=== PATIENT | male | born 1975 | race African-American/Black ===

== ENCOUNTER 2017-01-27 21:44 | Emergency (ER) | payer OTHER ==
[~2017-01-27 21:44] MED LIST: predniSONE 20 MG TAB PO SCH
[2017-01-27] MEDS ORDERED: IPRATROPIUM/ALBUTEROL 3 ML DEYVIAL ONE (22:02)
[2017-01-27] MEDS ORDERED: IPRATROPIUM/ALBUTEROL 3 ML DEYVIAL IH ONE (22:04)
[2017-01-27] MEDS ORDERED: ALBUTEROL 3 ML DEYVIAL ONE (22:16)
[2017-01-27] MEDS ORDERED: predniSONE 20 MG TAB PO ONE (22:25)
[2017-01-27] MEDS ORDERED: ALBUTEROL INH PREPACK MDI TAKEHOME ONE (23:10)
--- NOTE | 2017-01-27 23:12 | EDPHY ---
H & P Stated Complaint: SOB, Hx asthma - Personal History Current Tetanus/Diphtheria Vaccine: Yes Current Tetanus Diphtheria and Acellular Pertussis (TDAP): Yes - Medical/Surgical History Hx Asthma: Yes Hx Chronic Respiratory Disease: No Hx Diabetes: No Hx Cardiac Disease: No Hx Renal Disease: No Hx Cirrhosis: No Hx Alcoholism: No Hx HIV/AIDS: No Hx Splenectomy or Spleen Trauma: No Other PMH: asthma - Social History Smoking Status: Current every day smoker Time Seen by Provider: 01/27/17 22:18 HPI/ROS: Chief complaint: Difficulty breathing, asthma exacerbation History of present illness: This is a 41-year-old male who presents to the emergency department for evaluation of difficulty breathing. He is concerned he is having an asthma exacerbation. He states symptoms began over the last few days. They have been progressively worsened. He believes his symptoms have been precipitated by the fact that he continues to smoke cigarettes with his asthma and that he arrived at altitude coming from [place] up to [place] over a few weeks ago. He denies other potential precipitating factors. He denies alleviating factors. He denies other associated signs or symptoms including no fevers, no cold symptoms, no cough or hemoptysis, no chest pain, no pain or swelling in the legs. Review of systems: A 10 point review of systems was obtained and other than described above was negative (Ad Carlton) - Physical Exam Exam: General Appearance: Alert, no distress. Eyes: Pupils equal and round no pallor or injection. ENT, Mouth: Mucous membranes moist. Respiratory: Patient is talking in full sentences. No use of accessary muscles. Diffuse inspiratory and expiratory wheezing. No rhonchi or rales. Cardiovascular: Regular rate and rhythm. Gastrointestinal: Abdomen is soft and nontender, no masses, bowel sounds normal. Neurological: Alert and oriented x4. Strength and sensation intact and symmetrical. Skin: Warm and dry, no rashes. Musculoskeletal: Neck is supple nontender. Extremities are symmetrical, full range of motion. No evidence of DVT on inspection. Psychiatric: Patient is oriented X 3, there is no agitation. (Ad Carlton) Constitutional: Initial Vital Signs Temperature (C) 36.7 C 01/27/17 22:00 Heart Rate 84 01/27/17 22:00 Respiratory Rate 18 01/27/17 22:00 Blood Pressure 128/72 H 01/27/17 22:00 O2 Sat (%) 91 L 01/27/17 22:00 O2 Delivery Mode Room Air Allergies/Adverse Reactions: grass pollen Allergy (Verified 01/27/17 22:00) Home Medications: Medication Instructions Recorded predniSONE 40 mg PO DAILY 4 Days 01/27/17 Medical Decision Making - Diagnostics Imaging: I viewed and interpreted images myself ED Course/Re-evaluation: Patient seen under the supervision of my secondary supervising physician Dr. Lisa Graf. Patient presents to the emergency depart with trouble breathing. He is concerned he is having an exacerbation of his asthma. Patient is currently a smoker and has recently arrived at altitude. Vital signs are stable. Physical exam does reveal diffuse wheezing. He is given a nebulizer and prednisone. On re-evaluation he is feeling much better and his lung sounds have improved. I do believe he is consistent with an asthma exacerbation. My suspicion for other pathology is low. He is given a new rescue inhaler with spacer and its use has been discussed. We have also provided him with a full course of prednisone. He is asked to follow up with a primary care doctor for recheck. Return precautions are given. Patient voiced understanding and agreement with plan. (Ad Carlton) Differential Diagnosis: Included but not limited to asthma exacerbation, status asthmaticus, infectious pathology such as bronchitis or pneumonia, unlikely PE (Ad Carlton) Other Provider: PHYSICIAN DOCUMENTATION: The patient was evaluated and managed by the Physician Lead Fire Protection Engineer. My co- signature indicates that I have reviewed this chart and I agree with the findings and plan of care as documented. I am the secondary supervising physician. (Lisa Graf) - Data Points Medications Given: Discontinued Medications Albuterol/Ipratropium (Duoneb) 3 ml IH EDNOW ONE Stop: 01/27/17 22:05 Last Admin: 01/27/17 22:20 Dose: 3 ml Prednisone (Prednisone) 60 mg PO EDNOW ONE Stop: 01/27/17 22:26 Last Admin: 01/27/17 22:59 Dose: 60 mg Departure - Departure Disposition: Home, Routine, Self-Care Clinical Impression: Exacerbation of asthma Condition: Good Instructions: Asthma (ED) Additional Instructions: Follow-up with a primary care doctor for recheck If symptoms worsen or new symptoms develop return to the emergency room for recheck Referrals: NONE *PRIMARY CARE P,. [Primary Care Provider] - As per Instructions [facility],. [Clinic] - As per Instructions Prescriptions: predniSONE 40 mg PO DAILY 4 Days
[2017-01-28 00:30] VITALS: BP 125/86; PULSE 78; RESP 20; TEMP 98.2; O2SAT 96
== END 2017-01-28 00:30 | disposition home or self-care (01) ==
DX: J45.901 Unspecified asthma with (acute) exacerbation (principal); F17.200 Nicotine dependence, unspecified, uncomplicated
CPT/HCPCS: J7512

== ENCOUNTER 2017-02-18 17:11 | Emergency (ER) | payer OTHER ==
[2017-02-18] MEDS ORDERED: IPRATROPIUM/ALBUTEROL 3 ML DEYVIAL ONE (17:24)
[2017-02-18] MEDS ORDERED: IPRATROPIUM/ALBUTEROL 3 ML DEYVIAL IH ONE (17:27)
--- NOTE | 2017-02-18 17:29 | EDPHY ---
H & P Stated Complaint: SOB. HX- asthma HPI/ROS: CHIEF COMPLAINT: Shortness of breath. HISTORY OF PRESENT ILLNESS: This patient is a 41 year old male with history of asthma complaining of shortness of breath onset yesterday. He moved here from [place] around six weeks ago, and was seen here about 3 weeks ago for an asthma exacerbation. He currently smokes about half a pack of cigarettes per day, and states that this combined with the altitude may be contributing to his increased symptoms. He generally uses an albuterol rescue inhaler for symptom relief, and used this rarely while in [place], every 3-4 months. Here, he uses it every 3 days or so. He recently lost his inhaler and was unable to use it for relief of his most recent asthma symptoms. He has not established care with a local physician yet. [facility] [place] He denies fever, cough, chest pain, other recent illness or associated symptoms. REVIEW OF SYSTEMS: A ten point review of systems was performed and is negative with the exception of the items mentioned in the HPI. - Personal History Current Tetanus/Diphtheria Vaccine: Yes Current Tetanus Diphtheria and Acellular Pertussis (TDAP): Yes - Medical/Surgical History PMH: 1. Asthma 2. Environmental allergies Hx Asthma: Yes Hx Chronic Respiratory Disease: No Hx Diabetes: No Hx Cardiac Disease: No Hx Renal Disease: No Hx Cirrhosis: No Hx Alcoholism: No Hx HIV/AIDS: No Hx Splenectomy or Spleen Trauma: No Other PMH: asthma - Social History Smoking Status: Current every day smoker Additional Social History: Recently moved from [place]. , [facility] [place]. Currently homeless, staying on the streets. Current tobacco use, one pack every 2-3 days. Social alcohol use. Polysubstance abuse-- methamphetamine, cocaine. - Physical Exam Exam: General Appearance: Alert. Vital signs reviewed. Respiratory rate 22, pulse ox 82% room air. Heart rate 110, blood pressure 125/90. Eyes: Pupils equal and round, no conjunctival injection, no discharge. Anicteric. ENT, Mouth: Mucous membranes are moist, no oropharyngeal erythema or edema. Neck: No lymphadenopathy, supple. Trachea midline. Respiratory: Diffuse wheezing. Speaking in full sentences. No retractions. Cardiovascular: Regular rate and rhythm; no murmur, rub, or gallop. Gastrointestinal: Abdomen is soft and nontender, no masses or organomegaly, bowel sounds normal. Skin: Warm and dry, no rashes on exposed skin, normal color. Back: Nontender to palpation over the thoracolumbar spine. No CVAT. Extremities: No lower extremity edema, no calf tenderness or swelling. Neurological: Alert and oriented. Moving all four extremities easily and equally. Psychiatric: Normal affect. Constitutional: Initial Vital Signs Heart Rate 110 H 02/18/17 17:17 Respiratory Rate 22 H 02/18/17 17:17 Blood Pressure 125/90 H 02/18/17 17:17 O2 Sat (%) 82 L 02/18/17 17:17 O2 Delivery Mode Room Air O2 (L/minute) 1.5 Allergies/Adverse Reactions: grass pollen Allergy (Verified 01/27/17 22:00) Home Medications: Medication Instructions Recorded Albuterol [Proventil Inhaler HFA 1 - 2 puffs IH Q4 #1 mdi 02/18/17 (*)] predniSONE 20 mg PO BID #8 tablet 02/18/17 Medical Decision Making ED Course/Re-evaluation: Administered DuoNeb. Administered 60mg PO Prednisone. Administered Albuterol nebulizer treatment. 19:16 Reassessed patient. Wheezes resolved. Plan to get another inhaler, spacer, prednisone course. Discussed patient's social situation. Patient is currently using methamphetamine and cocaine, but expresses interest in recovery. [facility]-- there would be a charge for him to go there this evening and he is not interested in that. We also discussed smoking cessation. He is given a referral for primary care. The discharge his pulse ox was 93% with a respiratory rate of 18 and heart rate of 88. He was speaking easily in full sentences. He felt markedly better. Differential Diagnosis: Shortness of breath including but not limited to pulmonary infectious process, COPD, asthma, pulmonary embolus and congestive heart failure. - Data Points Medications Given: Discontinued Medications Albuterol (Proventil Neb) 3 ml IH EDNOW ONE Stop: 02/18/17 17:52 Last Admin: 02/18/17 17:53 Dose: 3 ml Albuterol Sulfate (Proventil Inh Prepack) 1 mdi TAKEHOME EDNOW ONE Stop: 02/18/17 19:37 Last Admin: 02/18/17 20:33 Dose: 1 mdi Albuterol/Ipratropium (Duoneb) 3 ml IH EDNOW ONE Stop: 02/18/17 17:28 Last Admin: 02/18/17 17:28 Dose: 3 ml Prednisone (Prednisone) 60 mg PO EDNOW ONE Stop: 02/18/17 17:33 Last Admin: 02/18/17 17:41 Dose: 60 mg Departure - Departure Disposition: Home, Routine, Self-Care Clinical Impression: Exacerbation of asthma Condition: Good Instructions: Albuterol (By breathing), Asthma (ED), How to Stop Smoking (ED) Additional Instructions: 1. Take your prednisone as prescribed. 2. Use your inhaler as prescribed as needed. 3. Follow up with the [facility] for continued medication management. 4. Return to the Emergency Department for shortness of breath, cough, fever, or other worsening of condition. Referrals: [facility],. [Clinic] - As per Instructions [facility] [Outside] - As per Instructions Prescriptions: Albuterol [Proventil Inhaler HFA (*)] 1 - 2 puffs IH Q4 #1 mdi predniSONE 20 mg PO BID #8 tablet Report Scribed for: Rebecca Parmar Report Scribed by: Cheyanne Hodges Date of Report: 02/18/17 Time of Report: 17:30 Physician Review and Approval Statement: 02/18/17 17:28 Portions of this note were transcribed by the certified medical aide. I, Dr. Rebecca Parmar, personally performed the history, physical exam, and medical decision- making; and confirmed the accuracy of the information in the transcribed note.
[2017-02-18] MEDS ORDERED: predniSONE 20 MG TAB PO ONE (17:32)
[2017-02-18] MEDS ORDERED: ALBUTEROL 3 ML DEYVIAL IH ONE (17:51)
[2017-02-18] MEDS ORDERED: ALBUTEROL INH PREPACK MDI TAKEHOME ONE (19:36)
[2017-02-18 20:38] VITALS: BP 130/80; PULSE 88; RESP 18; TEMP 97.9; O2SAT 93
== END 2017-02-18 20:42 | disposition home or self-care (01) ==
DX: J45.901 Unspecified asthma with (acute) exacerbation (principal); F17.210 Nicotine dependence, cigarettes, uncomplicated
CPT/HCPCS: J7512

== ENCOUNTER 2017-05-08 19:10 | Emergency (ER) | payer OTHER ==
[2017-05-08] MEDS ORDERED: IPRATROPIUM/ALBUTEROL 3 ML DEYVIAL IH ONE (19:29)
[2017-05-08] MEDS ORDERED: ALBUTEROL INH PREPACK MDI TAKEHOME ONE (19:48)
--- NOTE | 2017-05-08 19:48 | EDPHY ---
H & P Time Seen by Provider: 05/08/17 19:26 HPI/ROS: CHIEF COMPLAINT: Asthma exacerbation HISTORY OF PRESENT ILLNESS: The patient is a 41-year-old male who presents emergency department with an asthma exacerbation. He states he has had asthma for a long time and he recently ran out of his inhaler of albuterol. The albuterol usually solved his shortness of breath. He developed shortness of breath this evening and came to the emergency department for treatment. He states this is typical of his asthma. He denies any recent fevers or chills. No change in sputum or cough. REVIEW OF SYSTEMS: My complete review of systems is negative except as mentioned in the HPI. Past Medical/Surgical History: Asthma Social history: Homeless Smoking Status: Current every day smoker Physical Exam: 36.4, 97/68, 109, 18, 95% on room air GENERAL: No acute distress, alert. HEENT: Eyes normal to inspection, normal pharynx, no signs of dehydration. NECK: No thyromegaly, no lymphadenopathy, supple. RESPIRATORY: Coarse breath sounds bilaterally. Diffuse air movement present. No significant wheezing or rales. (this exam occurred after receiving an albuterol nebulizer) CVS: Regular rate and rhythm, no rubs, murmurs, or gallops. ABDOMEN: Soft, nontender, nondistended, no organomegaly. BACK: Normal to inspection, no CVA tenderness. SKIN: Normal color, no rash, warm, dry. No pallor. EXTREMITIES: No pedal edema, no calf tenderness, no Homans sign or cords, no joint swelling. NEURO/PSYCH: Alert and oriented, normal mood and affect Constitutional: Initial Vital Signs Temperature (C) 36.4 C 05/08/17 19:21 Heart Rate 109 H 05/08/17 19:21 Respiratory Rate 18 05/08/17 19:21 Blood Pressure 97/68 L 05/08/17 19:21 O2 Sat (%) 95 05/08/17 19:21 O2 Delivery Mode Room Air Allergies/Adverse Reactions: grass pollen Allergy (Verified 01/27/17 22:00) cats Allergy (Uncoded 05/08/17 19:20) Home Medications: Medication Instructions Recorded NK [No Known Home Meds] 05/08/17 Medical Decision Making ED Course/Re-evaluation: In the emergency department I discussed etiologies with the patient. He states "this is 100% asthma." The patient requests an albuterol MDI. From triage she was given albuterol neb. He felt better after this treatment. He was given an albuterol inhaler from the emergency department. He is given follow-up with [facility]. Patient was given warnings prior to leaving. Differential Diagnosis: My differential includes but is not limited to asthma exacerbation, pneumonia, bronchitis, pulmonary embolus, CHF - Data Points Medications Given: Discontinued Medications Albuterol/Ipratropium (Duoneb) 3 ml EDNOW ONE Stop: 05/08/17 19:30 Last Admin: 05/08/17 19:31 Dose: 3 ml Departure - Departure Disposition: Home, Routine, Self-Care Clinical Impression: Exacerbation of asthma Qualifiers: Asthma severity: mild Asthma persistence: intermittent Qualified Code(s): J45.21 - Mild intermittent asthma with (acute) exacerbation Condition: Good Instructions: Asthma (ED) Additional Instructions: Use your inhaler as needed every 2 hours. Return to the emergency department with worsening shortness of breath. Referrals: [facility],. [Clinic] - 5-7 days, call for appt.
[2017-05-08 19:58] VITALS: BP 102/67; PULSE 87; RESP 16; TEMP 97.7; O2SAT 96
== END 2017-05-08 19:57 | disposition home or self-care (01) ==
DX: J45.21 Mild intermittent asthma with (acute) exacerbation (principal); F17.200 Nicotine dependence, unspecified, uncomplicated

== ENCOUNTER 2017-07-06 05:43 | Emergency (ER) | payer OTHER ==
[2017-07-06 05:49] VITALS: TEMP 98.2
[2017-07-06] MEDS ORDERED: IPRATROPIUM/ALBUTEROL 3 ML DEYVIAL IH ONE ×2 (05:55→06:37)
--- NOTE | 2017-07-06 05:55 | EDPHY ---
H & P Stated Complaint: asthma attack starting approx 3 hrs travel pta HPI/ROS: HPI CHIEF COMPLAINT: Shortness of breath, wheezing HISTORY OF PRESENT ILLNESS: This patient very pleasant 42-year-old male, significant past medical history of asthma, he states his asthma has been acting up over the past 6 months. He distally reports that he smokes daily tobacco and marijuana he has been told not to do this with his underlying asthma but continues to do so. He is out of his albuterol inhaler and presents emergency room with wheezing. He feels short of breath. He has never been intubated. He denies productive sputum cough. He denies chest pain. Main complaint shortness of breath with wheezing. Past Medical History: Asthma Past Surgical History: Denies surgical history Social History: Daily tobacco use, daily marijuana use, additionally reports IV drug use methamphetamine Family History: Noncontributory ROS REVIEW OF SYSTEMS: A comprehensive 10 point review of systems is otherwise negative aside from elements mentioned in the history of present illness. Exam Constitutional appears well nontoxic triage nursing summary reviewed, vital signs reviewed, awake/alert. Vital signs noted to be normal tracks 92% room air sat. Eyes normal conjunctivae and sclera, EOMI, PERRLA. HENT normal inspection, atraumatic, moist mucus membranes, no epistaxis, neck supple/ no meningismus, no raccoon eyes. Respiratory decreased breath sounds bilaterally with wheezing throughout all lung clancy, audible wheezing, no respiratory distress Cardiovascular rate normal, regular rhythm, no murmur, no edema, distal pulses normal. Gastrointestinal soft, non-tender, no rebound, no guarding, normal bowel sounds, no distension, no pulsatile mass. Genitourinary no CVA tenderness. Musculoskeletal no midline vertebral tenderness, full range of motion, no calf swelling, no tenderness of extremities, no meningismus, good pulses, neurovascularly intact. Skin pink, warm, & dry, no rash, skin atraumatic. Neurologic awake, alert and oriented x 3, AAOx3, moves all 4 extremities equally, motor intact, sensory intact, CN II-XII intact, normal cerebellar, normal vision, normal speech. Psychiatric normal mood/affect. Heme/Lymph/Immune no lymphadenopathy. Differential Diagnosis: Includes but is not limited to in a particular order reactive airway disease, acute asthma, bronchitis, pneumonia, tobacco abuse, marijuana abuse Medical Decision Making: Plan for this patient DuoNeb breathing treatment, IV establishment with blood draw, IV Solu-Medrol, chest x-ray, and re-evaluation after breathing treatment. Re-evaluation: 0652: Chest x-ray one view reviewed by myself. No acute cardiopulmonary disease. Patient received 2 DuoNeb breathing treatments here. IV fluid bolus and IV Solu -Medrol and is feeling much better. He is requesting discharge. Re-examination of his lungs are clear. Very faint wheezing good air movement. No hypoxia. I will prescribe an albuterol inhaler, additionally prednisone for 5 days. He understands return precautions understands to return emergency room if develops worsening shortness of breath worsening wheezing trouble breathing fever vomiting or pain. Source: Patient - Medical/Surgical History Hx Asthma: Yes Hx Chronic Respiratory Disease: No Hx Diabetes: No Hx Cardiac Disease: No Hx Renal Disease: No Hx Cirrhosis: No Hx Alcoholism: No Hx HIV/AIDS: No Hx Splenectomy or Spleen Trauma: No Other PMH: asthma, ptsd, dep/anxiety. iv drug use - Social History Smoking Status: Current every day smoker Constitutional: Initial Vital Signs Temperature (C) 36.8 C 07/06/17 05:46 Heart Rate 108 H 07/06/17 05:46 Respiratory Rate 18 07/06/17 05:46 Blood Pressure 122/89 H 07/06/17 05:46 O2 Sat (%) 92 07/06/17 05:46 O2 Delivery Mode Room Air Allergies/Adverse Reactions: grass pollen Allergy (Verified 07/06/17 05:49) cats Allergy (Uncoded 05/08/17 19:20) Home Medications: Medication Instructions Recorded Albuterol [Proventil Inhaler HFA 1 - 2 puffs IH Q4H #1 mdi 07/06/17 (*)] predniSONE 60 mg PO DAILY #15 tab 07/06/17 Medical Decision Making - Data Points Laboratory Results: Laboratory Results 07/06/17 06:16 07/06/17 07/06/17 06:16 06:16 WBC 5.79 10^3/uL 10^3/uL (3.80-9.50) RBC 5.23 10^6/uL 10^6/uL (4.40-6.38) Hgb 16.1 g/dL g/dL (13.7-17.5) Hct 46.2 % % (40.0-51.0) MCV 88.3 fL fL (81.5-99.8) MCH 30.8 pg pg (27.9-34.1) MCHC 34.8 g/dL g/dL (32.4-36.7) RDW 12.9 % % (11.5-15.2) Plt Count 188 10^3/uL 10^3/uL (150-400) MPV 10.0 fL fL (8.7-11.7) Neut % (Auto) 39.9 % % (39.3-74.2) Lymph % (Auto) 46.1 % H % (15.0-45.0) [place] % (Auto) 6.2 % % (4.5-13.0) Eos % (Auto) 7.1 % % (0.6-7.6) Baso % (Auto) 0.5 % % (0.3-1.7) Nucleat RBC Rel Count 0.0 % % (0.0-0.2) Absolute Neuts (auto) 2.31 10^3/uL 10^3/uL (1.70-6.50) Absolute Lymphs (auto) 2.67 10^3/uL 10^3/uL (1.00-3.00) Absolute Monos (auto) 0.36 10^3/uL 10^3/uL (0.30-0.80) Absolute Eos (auto) 0.41 10^3/uL H 10^3/uL (0.03-0.40) Absolute Basos (auto) 0.03 10^3/uL 10^3/uL (0.02-0.10) Absolute Nucleated RBC 0.00 10^3/uL 10^3/uL (0-0.01) Immature Gran % 0.2 % % (0.0-1.1) Immature Gran # 0.01 10^3/uL 10^3/uL (0.00-0.10) Sodium Pending Potassium Pending Chloride Pending Carbon Dioxide Pending Anion Gap Pending BUN Pending Creatinine Pending Estimated GFR Pending Glucose Pending Calcium Pending Medications Given: Discontinued Medications Albuterol Sulfate (Proventil Inh Prepack) 1 sage CARBALLO ONE Stop: 07/06/17 06:05 Last Admin: 07/06/17 06:36 Dose: 1 mdi Albuterol/Ipratropium (Duoneb) 3 ml IH EDNOW ONE Stop: 07/06/17 05:56 Last Admin: 07/06/17 05:59 Dose: 3 ml Albuterol/Ipratropium (Duoneb) 3 ml IH EDNOW ONE Stop: 07/06/17 06:38 Last Admin: 07/06/17 06:38 Dose: 3 ml Sodium Chloride (Ns) 1,000 mls @ 0 mls/hr IV ONCE ONE; Wide Open PRN Reason: Protocol Stop: 07/06/17 06:01 Last Admin: 07/06/17 06:15 Dose: 1,000 mls Methylprednisolone Sodium Succinate (Solu-Medrol) 125 mg IVP EDNOW ONE Stop: 07/06/17 06:01 Last Admin: 07/06/17 06:14 Dose: 125 mg Departure - Departure Disposition: Home, Routine, Self-Care Clinical Impression: Asthma Qualifiers: Asthma severity: mild Asthma persistence: intermittent Asthma complication type : with acute exacerbation Qualified Code(s): J45.21 - Mild intermittent asthma with (acute) exacerbation Condition: Good Instructions: Albuterol (By breathing), Prednisone (By mouth), Asthma (ED) Additional Instructions: 1. Please stop smoking. 2. Steroids for 5 days. 3. Return to the ER if there is worsening symptoms questions or concerns 4. Stay well-hydrated. 6. Inhaler 2 puffs every 4 hr as needed for wheezing. Referrals: NONE *PRIMARY CARE P,. [Primary Care Provider] - As per Instructions Prescriptions: Albuterol [Proventil Inhaler HFA (*)] 1 - 2 puffs IH Q4H #1 mdi predniSONE 60 mg PO DAILY #15 tab
[2017-07-06] MEDS ORDERED: methylPREDNISolone SOD SUCC 125 MG/2 ML VIAL IVP ONE (06:00)
[2017-07-06] MEDS ORDERED: NS 1,000 ML IV ONE (06:00)
[2017-07-06] MEDS ORDERED: ALBUTEROL INH PREPACK MDI TAKEHOME ONE (06:04)
[2017-07-06 06:23] LABS: % IMMATURE GRANULYOCYTES 0.2 % (0.0-1.1); ABSOLUTE IMMATURE GRANULOCYTES 0.01 10^3/uL (0.00-0.10); ADD DIFF? NO; ADD MORPH? NO; ADD SCAN? NO; ATYPICAL LYMPHOCYTE FLAG 10 (0-99); FRAGMENT RBC FLAG 0 (0-99); HEMATOCRIT 46.2 % (40.0-51.0); HEMOGLOBIN 16.1 g/dL (13.7-17.5); LEFT SHIFT FLG 0 (0-99); LIPEMIA HEMOLYSIS FLAG 90 (0-99); MEAN CELL HEMOGLOBIN 30.8 pg (27.9-34.1); MEAN CELL HEMOGLOBIN CONCENTR. 34.8 g/dL (32.4-36.7); MEAN CELL VOLUME 88.3 fL (81.5-99.8); PLATELET CLUMPS FLAG 0 (0-99); PLATELET COUNT 188 10^3/uL (150-400); RED BLOOD CELL COUNT 5.23 10^6/uL (4.40-6.38); RED CELL DISTRIBUTION WIDTH 12.9 % (11.5-15.2)
[2017-07-06] MEDS ORDERED: IPRATROPIUM/ALBUTEROL 3 ML DEYVIAL ONE (06:38)
[2017-07-06 06:54] LABS: ANION GAP 14 mEq/L (8-16); CALCIUM 9.6 mg/dL (8.5-10.4); CARBON DIOXIDE 26 mEq/l (22-31); CHLORIDE 103 mEq/L (97-110); GLOMERULAR FILTRATION RATE > 60; GLUCOSE 123 mg/dL (70-100); POTASSIUM 4.2 mEq/L (3.5-5.2); SODIUM 143 mEq/L (134-144)
[2017-07-06 07:06] VITALS: BP 145/93; PULSE 93; RESP 18; O2SAT 100
== END 2017-07-06 07:17 | disposition home or self-care (01) ==
DX: J45.21 Mild intermittent asthma with (acute) exacerbation (principal); F17.200 Nicotine dependence, unspecified, uncomplicated; E86.9 Volume depletion, unspecified
CPT/HCPCS: 71010; 96361; 96374; 99284; J2930

== ENCOUNTER 2017-12-25 19:45 | Emergency (ER) | payer OTHER ==
--- NOTE | 2017-12-25 20:15 | CPEKG ---
Heart Rate: 86 RR Interval: 698 P-R Interval: 160 QRSD Interval: 84 QT Interval: 380 QTC Interval: 455 P [place]: 82 QRS [place]: 85 T Wave [place]: 69 EKG Severity - NORMAL ECG - EKG Impression: SINUS RHYTHM Electronically Signed By: Walter Puente 28-Dec-2017 11:40:41
[2017-12-25] MEDS ORDERED: predniSONE 20 MG TAB PO ONE (20:19)
--- NOTE | 2017-12-25 21:13 | EDPHY ---
H & P Stated Complaint: Asthma Time Seen by Provider: 12/25/17 20:00 HPI/ROS: Chief complaint: Asthma exacerbation History of present illness: This is a 42-year-old male with a history of asthma , who denies a history need for advanced airway management, who presents for evaluation and treatment of what he believes is an exacerbation. He states he has run out of his inhaler recently. He has had increasing shortness of breath , he believes it is due to pollen. He denies other associated signs or symptoms : No fevers, no cold symptoms, no pain or swelling in the legs. Review of systems: A 10 point review of systems was obtained and other than described above was negative - Personal History Current Tetanus/Diphtheria Vaccine: Yes Current Tetanus Diphtheria and Acellular Pertussis (TDAP): Yes - Medical/Surgical History Hx Asthma: Yes Hx Chronic Respiratory Disease: No Hx Diabetes: No Hx Cardiac Disease: No Hx Renal Disease: No Hx Cirrhosis: No Hx Alcoholism: No Hx HIV/AIDS: No Hx Splenectomy or Spleen Trauma: No Other PMH: asthma, ptsd, dep/anxiety. iv drug use - Social History Smoking Status: Current every day smoker - Physical Exam Exam: General Appearance: Alert, nontoxic. Eyes: Pupils equal and round no pallor or injection. ENT, Mouth: Mucous membranes moist. Respiratory: Patient is talking in full sentences. There is diffuse inspiratory and expiratory wheezing. Cardiovascular: Regular rate and rhythm. Neurological: Alert and oriented x4. Strength and sensation intact and symmetrical. Skin: Warm and dry, no rashes. Musculoskeletal: Neck is supple non tender. Extremities are symmetrical, full range of motion. Psychiatric: Patient is oriented X 3, there is no agitation. Constitutional: Initial Vital Signs Temperature (C) 36.7 C 12/25/17 19:45 Heart Rate 104 H 12/25/17 19:45 Respiratory Rate 16 12/25/17 19:45 Blood Pressure 134/67 H 12/25/17 19:45 O2 Sat (%) 97 12/25/17 19:45 O2 Delivery Mode Room Air Allergies/Adverse Reactions: grass pollen Allergy (Verified 07/06/17 05:49) cats Allergy (Uncoded 05/08/17 19:20) Home Medications: Medication Instructions Recorded Albuterol [Proventil Inhaler HFA 1 - 2 puffs IH Q4H #1 mdi 07/06/17 (*)] predniSONE 60 mg PO DAILY #15 tab 07/06/17 Albuterol [Ventolin Hfa Inhaler] 1 - 2 puffs IH Q4 #1 mdi 12/25/17 predniSONE 40 mg PO DAILY 3 Days tab 12/25/17 Medical Decision Making - Diagnostics Imaging Results: Imaging Impressions Chest X-Ray 12/25/17 20:09 Impression: Mild peribronchial thickening suggesting airways disease/bronchitis. Imaging: I viewed and interpreted images myself ED Course/Re-evaluation: Patient is seen under the supervision of my secondary supervising physician Dr. Darrel Carr. Patient presents to the emergency department for evaluation of an asthma exacerbation. He is nontoxic. Physical exam does reveal diffuse wheezing. The workup unremarkable. He is given a DuoNeb and 60 mg of prednisone orally. He states he is feeling much better. Lung sounds have improved. He is discharged home with an inhaler and spacer. He is given a prescriptions for a burst of steroids as it has been greater than 3 months since his last use of steroids. He is also given a prescription for inhalers with refills. Home care is discussed. He is to follow up with primary care doctor for recheck. Return precautions are given. Differential Diagnosis: Included but not limited to asthma exacerbation, status asthmaticus, pulmonary infections - Data Points Medications Given: Discontinued Medications Albuterol Sulfate (Proventil Inh Prepack) 1 mdi TAKEHOME EDNOW ONE Stop: 12/25/17 21:15 Last Admin: 12/25/17 22:04 Dose: 1 mdi Prednisone (Prednisone) 60 mg PO EDNOW ONE Stop: 12/25/17 20:20 Last Admin: 12/25/17 20:26 Dose: 60 mg Departure - Departure Disposition: Home, Routine, Self-Care Clinical Impression: Exacerbation of asthma Qualifiers: Asthma severity: unspecified severity Asthma persistence: unspecified Qualified Code(s): J45.901 - Unspecified asthma with (acute) exacerbation Condition: Good Instructions: Albuterol (By breathing), Asthma (ED) Additional Instructions: Follow-up with the primary care doctor this week for recheck If symptoms worsen or new symptoms develop return to the emergency room for recheck Referrals: NONE *PRIMARY CARE P,. [Primary Care Provider] - As per Instructions [facility],. [Clinic] - As per Instructions Prescriptions: Albuterol [Ventolin Hfa Inhaler] 1 - 2 puffs IH Q4 #1 mdi predniSONE 40 mg PO DAILY 3 Days tab
[2017-12-25] MEDS ORDERED: ALBUTEROL INH PREPACK MDI TAKEHOME ONE (21:14)
[2017-12-26 06:30] VITALS: BP 118/76
== END 2017-12-25 22:11 | disposition home or self-care (01) ==
LOC: EDUNIT#
DX: J45.901 Unspecified asthma with (acute) exacerbation (principal); F17.200 Nicotine dependence, unspecified, uncomplicated
CPT/HCPCS: 71046; 93005; 99284; J7512

== ENCOUNTER 2018-11-17 06:14 | Emergency (ER) | payer OTHER ==
[2018-11-17] MEDS ORDERED: IPRATROPIUM/ALBUTEROL 3 ML DEYVIAL ONE (06:40)
--- NOTE | 2018-11-17 06:40 | EDPHY ---
H & P Stated Complaint: asthma attack x2 hours, out if inhaler Source: Patient - Personal History Current Tetanus/Diphtheria Vaccine: No - Medical/Surgical History Hx Asthma: Yes Hx Chronic Respiratory Disease: No Hx Diabetes: No Hx Cardiac Disease: No Hx Renal Disease: No Hx Cirrhosis: No Hx Alcoholism: No Hx HIV/AIDS: No Hx Splenectomy or Spleen Trauma: No Other PMH: asthma, ptsd, dep/anxiety. iv drug use - Social History Smoking Status: Current every day smoker Time Seen by Provider: 11/17/18 06:40 HPI/ROS: HPI CHIEF COMPLAINT: Asthma HISTORY OF PRESENT ILLNESS: This patient is a 43-year-old male, presents to the emergency room shortness of breath, wheezing, coughing nonproductive. Patient states he smokes tobacco, additionally marijuana and smoked methamphetamine tonight. He states shortly after smoking methamphetamine he began wheezing and coughing. He believes his asthma is acting up. Watkins short of breath. Denies any chest pain. No history of intubation. Past Medical History: Asthma Past Surgical History: No surgical history Social History: Denies alcohol. Does smoke tobacco, marijuana, methamphetamine. Family History: Noncontributory ROS REVIEW OF SYSTEMS: 10 Systems were reviewed and negative with the exception of the elements mentioned in the history of present illness. Exam Constitutional triage nursing summary reviewed, vital signs reviewed, awake/ alert. No distress. No hypoxia Eyes normal conjunctivae and sclera, EOMI, PERRLA. HENT normal inspection, atraumatic, moist mucus membranes, no epistaxis, neck supple/ no meningismus, no raccoon eyes. Respiratory faint wheezing bilaterally, however good air movement Cardiovascular rate normal, regular rhythm, no murmur, no edema, distal pulses normal. Gastrointestinal soft, non-tender, no rebound, no guarding, normal bowel sounds, no distension, no pulsatile mass. Genitourinary no CVA tenderness. Musculoskeletal no midline vertebral tenderness, full range of motion, no calf swelling, no tenderness of extremities, no meningismus, good pulses, neurovascularly intact. Skin pink, warm, & dry, no rash, skin atraumatic. Neurologic awake, alert and oriented x 3, AAOx3, moves all 4 extremities equally, motor intact, sensory intact, CN II-XII intact, normal cerebellar, normal vision, normal speech. Psychiatric normal mood/affect. Heme/Lymph/Immune no lymphadenopathy. Differential Diagnosis: Includes but is not limited to in a particular order acute asthma attack, reactive airway disease, bronchitis, pneumothorax, pneumonia. Medical Decision Making: Plan for this patient DuoNeb breathing treatment, chest x-ray, IV establishment with blood draw, IV Solu-Medrol. Re-evaluate Re-evaluation: 0745: Patient re-evaluated this time he is still wheezing. However does have good air movement, pulse ox 93% on room air. Heart rate 77. Plan for 2nd DuoNeb breathing treatment Patient received 60 mg prednisone orally he declined IV establishment. Declined IV blood draw or IV Solu-Medrol. ED x-ray chest one view; negative for acute cardiopulmonary disease. Image interpreted by myself. Plan for this patient at this time 2nd DuoNeb breathing treatment and re- evaluation. Signed over to Dr. Gates 7:50 a.m.. For re-evaluation. Prescription albuterol prednisone will be provided. I did weight loss counselor the patient not smoking methamphetamine, tobacco, marijuana. (Rickey Good) Constitutional: Initial Vital Signs Temperature (C) 36.6 C 11/17/18 06:16 Heart Rate 95 11/17/18 06:16 Respiratory Rate 18 11/17/18 06:16 Blood Pressure 114/69 11/17/18 06:16 O2 Sat (%) 90 L 11/17/18 06:16 O2 Delivery Mode Room Air Allergies/Adverse Reactions: grass pollen Allergy (Verified 07/06/17 05:49) cats Allergy (Uncoded 05/08/17 19:20) Home Medications: Medication Instructions Recorded Albuterol [Ventolin Hfa Inhaler] 1 - 2 puffs IH Q4 #1 mdi 12/25/17 Albuterol [Proventil Inhaler HFA 1 - 2 puffs IH Q4H #1 mdi 11/17/18 (*)] predniSONE 50 mg PO DAILY #5 tablet 11/17/18 Medical Decision Making ED Course/Re-evaluation: 0745: I assumed care of this pt at shift change. He presents with an asthma exacerbation after running out of his inhaler. No recent illness or fever. Lungs are clear to auscultation on my exam. Oxygen saturation 93% on room air. CXR reviewed by me: no infiltrate. Will d/c home after neb. (Sammi Gates) - Data Points Medications Given: Discontinued Medications Albuterol/Ipratropium (Duoneb) 3 ml IH EDNOW ONE Stop: 11/17/18 06:48 Last Admin: 11/17/18 06:47 Dose: 3 ml Sodium Chloride (Ns) 1,000 mls @ 0 mls/hr IV EDNOW ONE; Wide Open PRN Reason: Protocol Stop: 11/17/18 06:47 Last Admin: 11/17/18 07:14 Dose: Not Given Methylprednisolone Sodium Succinate (Solu-Medrol) 125 mg IVP EDNOW ONE Stop: 11/17/18 06:48 Last Admin: 11/17/18 07:14 Dose: Not Given Prednisone (Prednisone) 60 mg PO EDNOW ONE Stop: 11/17/18 06:50 Last Admin: 11/17/18 07:14 Dose: 60 mg Departure - Departure Disposition: Home, Routine, Self-Care Clinical Impression: Asthma attack Condition: Good Instructions: Asthma (ED) Additional Instructions: 1. STAY WELL-HYDRATED DRINK LOTS OF FLUIDS. 2. PLEASE RETURN TO THE EMERGENCY ROOM IF DEVELOPS WORSENING SHORTNESS OF BREATH , FEVER, VOMITING, COUGH 3. ALBUTEROL INHALER 2 PUFFS NEEDED EVERY 4 HR. 4. DO NOT SMOKE TOBACCO MARIJUANA OR METHAMPHETAMINE. Referrals: [facility],. [Clinic] - 1 day, if not improved Prescriptions: Albuterol [Proventil Inhaler HFA (*)] 1 - 2 puffs IH Q4H #1 mdi predniSONE 50 mg PO DAILY #5 tablet
[2018-11-17] MEDS ORDERED: NS 1,000 ML IV ONE (06:46)
[2018-11-17] MEDS ORDERED: methylPREDNISolone SOD SUCC 125 MG/2 ML VIAL IVP ONE (06:47)
[2018-11-17] MEDS ORDERED: IPRATROPIUM/ALBUTEROL 3 ML DEYVIAL IH ONE ×2 (06:47→07:50)
[2018-11-17] MEDS ORDERED: predniSONE 20 MG TAB PO ONE (06:49)
[2018-11-17 08:14] VITALS: BP 119/75
== END 2018-11-17 08:17 | disposition home or self-care (01) ==
DX: J45.901 Unspecified asthma with (acute) exacerbation (principal); E86.9 Volume depletion, unspecified
CPT/HCPCS: 71045; 99284; J7512; J2930

== ENCOUNTER 2018-11-21 00:07 | Emergency (ER) | payer OTHER ==
[2018-11-21] MEDS ORDERED: IPRATROPIUM/ALBUTEROL 3 ML DEYVIAL ONE (00:13)
[2018-11-21] MEDS ORDERED: IPRATROPIUM/ALBUTEROL 3 ML DEYVIAL IH ONE (00:17)
[2018-11-21] MEDS ORDERED: ALBUTEROL INH PREPACK MDI TAKEHOME ONE (00:33)
--- NOTE | 2018-11-21 00:46 | EDPHY ---
H & P Stated Complaint: asthma Time Seen by Provider: 11/21/18 00:30 HPI/ROS: Chief Complaint: Asthma exacerbation HPI: 43-year-old male with a history of asthma is presenting with a worsening exacerbation. Patient lost his albuterol inhaler. He was here 3 days ago and received a new inhaler at that time. He has had increasing cough and wheeze. No fevers or chills. No chest pain. Some moderate shortness of breath. No fainting. Patient states that he only uses albuterol for his asthma. He is not on a control inhaler. He has had steroids occasionally in the past, none recently. No recent URI symptoms. Has had multiple hospitalizations with visits to the ED. No intubations in the past. Per nursing staff patient had diffuse expiratory wheezing on exam. They initiated DuoNeb prior to my evaluation. ROS: 10 systems were reviewed and were negative except those elements noted in the HPI. PMH: Asthma Social History: No smoking, no alcohol, currently homeless Family History: non-contributory Physical Exam: Gen: Awake, Alert, No Distress HEENT: Nose: no rhinorrhea Eyes: PERRLA, EOMI Mouth: Moist mucosa Neck: Supple, no JVD Chest: nontender, lungs clear to auscultation, no wheeze, mildly prolonged expiratory phase with forced expiration. Heart: S1, S2 normal, no murmur Abd: Soft, non-tender, no guarding Back: no CVA tenderness, no midline tenderness Ext: no edema, non-tender Skin: no rash Neuro: CN II-XII intact, Sensation grossly intact, Strength 5/5 in bilateral upper and lower extremities - Personal History Current Tetanus/Diphtheria Vaccine: No Current Tetanus Diphtheria and Acellular Pertussis (TDAP): No - Medical/Surgical History Hx Asthma: Yes Hx Chronic Respiratory Disease: No Hx Diabetes: No Hx Cardiac Disease: No Hx Renal Disease: No Hx Cirrhosis: No Hx Alcoholism: No Hx HIV/AIDS: No Hx Splenectomy or Spleen Trauma: No Other PMH: asthma, ptsd, dep/anxiety. iv drug use - Social History Smoking Status: Current every day smoker Constitutional: Initial Vital Signs Heart Rate 95 11/21/18 00:13 Respiratory Rate 16 11/21/18 00:13 Blood Pressure 125/85 H 11/21/18 00:13 O2 Sat (%) 96 11/21/18 00:13 O2 Delivery Mode Room Air Allergies/Adverse Reactions: grass pollen Allergy (Verified 07/06/17 05:49) cats Allergy (Uncoded 05/08/17 19:20) Home Medications: Medication Instructions Recorded Albuterol [Ventolin Hfa Inhaler] 1 - 2 puffs IH Q4 #1 mdi 12/25/17 Albuterol [Proventil Inhaler HFA 1 - 2 puffs IH Q4H #1 mdi 11/17/18 (*)] predniSONE 50 mg PO DAILY #5 tablet 11/17/18 Medical Decision Making ED Course/Re-evaluation: 43-year-old asthmatic male presenting with asthma exacerbation. Patient is improved after a single neb treatment here. He states he feels back to his baseline. I have given him an albuterol inhaler and a spacer. Will - Data Points Medications Given: Discontinued Medications Albuterol/Ipratropium (Duoneb) 3 ml IH EDNOW ONE Stop: 11/21/18 00:18 Last Admin: 11/21/18 00:18 Dose: 3 ml Departure - Departure Disposition: Home, Routine, Self-Care Clinical Impression: Exacerbation of asthma Condition: Good Instructions: Albuterol (By breathing), Asthma (ED) Additional Instructions: [facility] in 2-3 days for re-evaluation. Return to the emergency department for worsening cough, difficulty breathing, fevers or chills, or any other concerns. Referrals: [facility],. [Clinic] - As per Instructions
[2018-11-21 00:55] VITALS: BP 121/73
== END 2018-11-21 00:54 | disposition home or self-care (01) ==
DX: J45.901 Unspecified asthma with (acute) exacerbation (principal); F17.200 Nicotine dependence, unspecified, uncomplicated; Z59.0 Homelessness

== ENCOUNTER 2018-12-05 01:03 | Emergency (ER) | payer OTHER ==
[2018-12-05 01:07] VITALS: BP 134/92
[2018-12-05] MEDS ORDERED: IPRATROPIUM/ALBUTEROL 3 ML DEYVIAL ONE (01:10)
[2018-12-05] MEDS ORDERED: IPRATROPIUM/ALBUTEROL 3 ML DEYVIAL IH ONE (01:13)
--- NOTE | 2018-12-05 01:17 | EDPHY ---
H & P Stated Complaint: ASTHMA ATTACK OUT OF HIS ALBUTEROL Time Seen by Provider: 12/05/18 01:09 HPI/ROS: Chief Complaint: Asthma exacerbation HPI: 43 year old male with a history of asthma presenting with an asthma exacerbation. He ran out of his albuterol inhaler. I actually saw him about 3 weeks ago for similar episode in provided with an inhaler. Patient states he has used at all. He has not followed up in the clinic. He has a dry nonproductive cough. No fevers or chills. No chest pain. He is not on a controlled inhaler. ROS: 10 systems were reviewed and were negative except those elements noted in the HPI. PMH: Asthma Social History: Positive smoking Family History: non-contributory Physical Exam: Gen: Awake, Alert, No Distress HEENT: Nose: no rhinorrhea Eyes: PERRLA, EOMI Mouth: Moist mucosa Neck: Supple, no JVD Chest: nontender, diffuse expiratory wheezing Heart: S1, S2 normal, no murmur Abd: Soft, non-tender, no guarding Back: no CVA tenderness, no midline tenderness Ext: no edema, non-tender Skin: no rash Neuro: CN II-XII intact, Sensation grossly intact, Strength 5/5 in bilateral upper and lower extremities - Personal History Current Tetanus/Diphtheria Vaccine: No Current Tetanus Diphtheria and Acellular Pertussis (TDAP): No - Medical/Surgical History Hx Asthma: Yes Hx Chronic Respiratory Disease: No Hx Diabetes: No Hx Cardiac Disease: No Hx Renal Disease: No Hx Cirrhosis: No Hx Alcoholism: No Hx HIV/AIDS: No Hx Splenectomy or Spleen Trauma: No Other PMH: asthma, ptsd, dep/anxiety. iv drug use - Social History Smoking Status: Current every day smoker Constitutional: Initial Vital Signs Temperature (C) 36.4 C 12/05/18 01:05 Heart Rate 145 H 12/05/18 01:05 Respiratory Rate 24 H 12/05/18 01:05 Blood Pressure 134/92 H 12/05/18 01:05 O2 Sat (%) 92 12/05/18 01:05 O2 Delivery Mode Room Air Allergies/Adverse Reactions: grass pollen Allergy (Verified 07/06/17 05:49) cats Allergy (Uncoded 05/08/17 19:20) Home Medications: Medication Instructions Recorded Albuterol [Ventolin Hfa Inhaler] 1 - 2 puffs IH Q4 #1 mdi 12/25/17 Albuterol [Proventil Inhaler HFA 1 - 2 puffs IH Q4H #1 mdi 11/17/18 (*)] Medical Decision Making ED Course/Re-evaluation: Patient is feeling significantly improved after 1 albuterol nebulizer treatment. Lungs are clear. Will discharge with albuterol inhaler. He still has a spacer tube. I have encouraged him to follow up at [facility] for further evaluation and medication management. - Data Points Medications Given: Discontinued Medications Albuterol/Ipratropium (Duoneb) 3 ml IH EDNOW ONE Stop: 12/05/18 01:14 Last Admin: 12/05/18 01:15 Dose: 3 ml Departure - Departure Disposition: Home, Routine, Self-Care Clinical Impression: Exacerbation of asthma Condition: Good Instructions: Asthma (ED), Albuterol (By breathing) Additional Instructions: You may use the albuterol inhaler 1-2 puffs every 2-4 hours as needed for cough or wheeze. Always use a spacer tube with your inhaler. Please follow-up with [facility] and the next 3-4 days for further evaluation and medication management. Referrals: [facility],. [Clinic] - As per Instructions
[2018-12-05] MEDS ORDERED: ALBUTEROL INH PREPACK MDI TAKEHOME ONE (01:36)
== END 2018-12-05 01:47 | disposition home or self-care (01) ==
DX: J45.901 Unspecified asthma with (acute) exacerbation (principal)